=== PATIENT | male | born 1990 | race Hispanic/Latino ===

== ENCOUNTER 2022-09-26 07:50 | Emergency (ER) | payer SELFPAY ==
[2022-09-26 07:52] VITALS: BP 121/80; PULSE 106; RESP 16; TEMP 36.1; O2SAT 96; BMI 24.6
--- NOTE | 2022-09-26 08:07 | ED.VIS.DENTA ---
HPI History of Present Illness Chief Complaint: Dental Detail of Chief Complaint: Dental pain and swelling that started Thursday Informant: patient Onset/Context/Timing Onset: Days Context: Sudden Onset Timing: Continuous Quality: Pain Location: Buccal side of right lower jaw proximity of tooth #30 and 31 Current Severity: Mild Maximum Severity: Moderate Worsened by: Salt water and cold liquids Relieved by: - (Nothing) Associated Symptoms Assocated Symptom - Dental: fever, jaw swelling and cold sensitivity; Negative for face swelling or hot sensitivity Narrative Narrative: Patient is a healthy 32-year-old [id number]-[id number] male who presents because of dental pain that started on Thursday. He also noted its swelling. He denies difficulty opening closing his mouth. He denies drooling. He denies change in voice. He reported subjective fever. He did take antipyretic this morning. He does not have a dentist. He does not smoke or drink. He has no medication allergies. He denies history medic fever, heart murmur, SBE or being immune suppressed. Patient has no contraindication NSAIDs. Prior similar symptoms: No Recent Illness/Hospitalization: No PFSH PFSH Medical History no medical history no medical history Surgical History no surgical history no surgical history Social History (Updated 09/26/22 @ 08:[address] Venancio Larson MD) Smoking Status: Never smoker alcohol intake: never substance use type: does not use ROS ROS ED Constitutional Constitutional ED: Reports fever(s) and subjective; Denies chills, sweats or weight loss Eyes Eyes: Denies blurry vision or change in vision ENT ENT ED: Reports other Details: Dental pain per HPI narrative ; Denies ear pain, rhinorrhea or sore throat Cardiovascular Cardiovascular: Denies chest pain or palpitations Respiratory/Chest Respiratory/Chest: Denies cough or dyspnea Musculoskeletal Musculoskeletal: Reports neck pain and other Details: Patient complains of pain inferior the angle of the mandible on the right side. Integumentary Denies rash Hematologic/Lymphatic Hematologic/Lymphatic: Denies easy bleeding or easy bruising EXAM Physical Exam Const Vital Signs: 09/26/22 07:52 Temperature 97 F L Temperature Source Temporal Pulse Rate 106 H Respiratory Rate 16 Blood Pressure 121/80 H Blood Pressure Mean 93 Pulse Ox 96 Oxygen Delivery Method Room Air Positive well nourished and well developed General Appearance ED: well developed and NAD HEENT HEENT Narrative: Head is atraumatic normocephalic. Ears normal left greater than right. Nares patent. Posterior pharynx slight erythema. Patient has swelling buccal side in the proximity of tooth #30 and 31. There is no trismus. There is no drooling. There is no dysphonia. There is no facial swelling or facial cellulitis. Mouth ED: Yes oral and palatal mucosa normal, Yes lips normal, Yes tongue normal, Yes salivary gland normal and No mouth trauma Mouth: oral and palatal mucosa normal, lips normal, tongue normal, salivary gland normal and No mouth trauma Teeth and Gingiva: gingiva abnormal Neck No no lymphadenopathy, supple and no JVD Neck Narrative: Superior anterior cervical lymph node noted on the right. General: normal visual inspection and tenderness Lymph Lymphatic: lymphadenopathy; Negative for no lymphadenopathy noted Chest Wall inspection of chest normal Resp normal respiratory effort, no retractions and clear to auscultation bilaterally Cardio regular rate, regular rhythm, S1 normal heart sound, S2 normal heart sound and no murmurs Neuro oriented x3, CN's II-XII intact bilaterally and moves all extremities Psych mental status grossly normal Skin no rashes or lesions noted and no wounds MDM MDM MDM Narrative Medical decision making narrative: Use of service. Total time 12 minutes. Patient was given dental sheet. Patient was treated with NSAID and penicillin in the Emergency Department. He was discharged with prescription for opiate analgesia, NSAID and penicillin. He was informed reasons to return. His home-going structures will be in [place]. Suspect patient has an apical abscess. The epiglottis that has not fistulized. Patient will need dental x-rays. Patient was treated with Naprosyn and penicillin in the department and discharged with prescription for [place]k, Naprosyn and Pen-Vee K. History & Record Review Discussion w/independent historian: Patient and Other (Director Of Special Events service) Discharge Plan Triage Chief Complaint: Dental ED Provider: Venancio Larson Dx/Rx/DC Orders Clinical Impression: Abscess, apical, Gingivitis, Pain, dental Instructions: Dental Abscess Primary Care Provider: NOT,DEFINED Referrals: NOT,DEFINED [Primary Care Provider] - Dentist,Your [STAFF PHYSICIAN] - As soon as possible Activity Restrictions/Additional Instructions: 1. Take medication as prescribed until gone 2. If you are unable to open your mouth completely, change in voice or drooling return to the emergency department 3. Recommend calling dentist office today to arrange for appointment Print Language: [place] Disposition Disposition: Home, Self Care
[2022-09-26] MEDS: Naproxen 250 MG Tablet 500 MG PO (08:26)
[2022-09-26] MEDS: Penicillin Vk 250 MG Tablet 500 MG PO (08:26)
[2022-09-26 08:28] VITALS: PULSE 94; RESP 18
--- NOTE | 2022-09-26 08:28 | ED.RN ---
[facility] ONLINE GERIATRIC NURSING ASSISTANT FOR THIS PATIENT.
== END 2022-09-26 08:41 | disposition home or self-care (01) ==
LOC: ED 08:39
PROVIDERS: Emergency Provider Emergency Medicine; Visit Provider Emergency Medicine
DX: K04.7 Periapical abscess without sinus (principal); K05.10 Chronic gingivitis, plaque induced; K08.89 Other specified disorders of teeth and supporting structures
CPT/HCPCS: 99283